=== PATIENT | female | born 1960 | race Caucasian/White ===

== ENCOUNTER 2025-05-12 16:34 | Emergency (ER) | payer MEDICARE, MEDICAID ==
[~2025-05-12] VITALS: Ht 157.5 cm; Wt 112.8 kg
[~2025-05-12 16:34] MED LIST: ASPI-556 PO; CARV3.1262 PO; DEXT15SY3 PO; GLIP5TAB15 PO; IBUP-2124 PO; METF-446 PO; PERCT PO; SIMV-260 PO
[2025-05-12 16:38] VITALS: BP 126/62; PULSE 80; RESP 18; TEMP 97.3; O2SAT 98
[2025-05-12 17:27] LABS: COVID AG,FIA SOURCE NASAL SWAB
[2025-05-12 17:28] LABS: PLATELET COUNT (AUTO) 305 K/uL (150-450); RED BLOOD CELL COUNT(AUTO) 4.75 MIL/uL (4.00-5.20); RED CELL DISTRIBUTION WIDTH 14.3 % (11.5-14.5); WHITE BLOOD COUNT (AUTO) 7.1 K/uL (4.5-11.0)
[2025-05-12 17:35] LABS: CALCIUM, TOTAL 9.0 mg/dL (8.8-10.5); CREATININE 0.45 mg/dL (0.60-1.30); GLOMERULAR FILTR. RATE CALC > 60 mL/min (>60); GLUCOSE,RANDOM 112 mg/dL (70-110); SODIUM SERUM 138 mmol/L (136-145); UREA NITROGEN, BLOOD 11 mg/dL (7-18)
[2025-05-12 17:43] LABS: SARS-COV2 (COVID) ANTIGEN,FIA Negative (Negative)
[2025-05-12] MEDS: PERMETHRIN 5% 60 GM CREAM TP ONE (18:58)
== END 2025-05-12 20:24 | disposition home or self-care (01) ==
LOC: EMS 16:34
DX: F41.9 Anxiety disorder, unspecified (principal); B86 Scabies; E11.9 Type 2 diabetes mellitus without complications; L29.9 Pruritus, unspecified; Z98.890 Other specified postprocedural states; Z79.82 Long term (current) use of aspirin; Z79.84 Long term (current) use of oral hypoglycemic drugs; Z79.899 Other long term (current) drug therapy; Z98.84 Bariatric surgery status; Z20.822 Contact with and (suspected) exposure to COVID-19
CPT/HCPCS: 99283; 87426; 80048; 85025; 36415; G0480